=== PATIENT | male | born 1995 | race Caucasian/White ===

== ENCOUNTER 2022-01-08 16:03 | Emergency (ER) | payer MEDICAID ==
[~2022-01-08] VITALS: Ht 175.3 cm; Wt 64.0 kg
[2022-01-08 16:06] VITALS: BP 114/53
[2022-01-08 19:16] LABS: BASOPHILS % 0.7 % (0.0-2.0); EOSINOPHILS % 3.5 % (0.0-5.0); HEMATOCRIT. 40.1 % (42.0-52.0); HEMOGLOBIN. 13.8 g/dL (14.0-18.0); LYMPHOCYTES % 33.3 % (20.0-50.0); MEAN CORPUSCULAR HEMOGLOBIN 30.4 pg (28.0-32.0); MEAN CORPUSCULAR VOLUME 88.2 fL (80.0-94.0); MEAN PLATELET VOLUME 8.1 fl (7.4-10.4); MONOCYTES % 13.5 % (2.0-8.0); PLATELET 257 x1000/uL (130-400); RED BLOOD CELL COUNT 4.55 mill/uL (4.7-6.1); RED CELL DISTRIBUTION WIDTH 13.4 % (11.6-14.6)
[2022-01-08 19:23] LABS: CHLORIDE 105 mEq/L (98-107)
== END 2022-01-08 22:26 | disposition home or self-care (01) ==
LOC: ER 16:03
DX: R07.89 Other chest pain (principal); F15.10 Other stimulant abuse, uncomplicated; F11.10 Opioid abuse, uncomplicated
CPT/HCPCS: 36415; 71045; 80053; 83880; 84484; 85025; 93005; 99285

== ENCOUNTER 2022-01-08 22:10 | Emergency (ER) | payer MEDICAID ==
[~2022-01-08] VITALS: Ht 172.7 cm; Wt 68.0 kg
[2022-01-08 23:42] VITALS: BP 112/74
== END 2022-01-08 23:42 | disposition home or self-care (01) ==
LOC: ER 22:10
DX: R07.89 Other chest pain (principal); F15.10 Other stimulant abuse, uncomplicated; F11.10 Opioid abuse, uncomplicated; F17.210 Nicotine dependence, cigarettes, uncomplicated
CPT/HCPCS: 99281

== ENCOUNTER 2022-01-09 01:41 | Emergency (ER) | payer MEDICAID ==
[~2022-01-09] VITALS: Ht 172.7 cm; Wt 100.0 kg
[2022-01-09 01:45] VITALS: BP 148/72
== END 2022-01-09 03:13 | disposition home or self-care (01) ==
LOC: ER 01:41
DX: F15.90 Other stimulant use, unspecified, uncomplicated (principal)
CPT/HCPCS: 99283